=== PATIENT | female | born 1990 | race Caucasian/White ===

== ENCOUNTER 2017-03-02 19:40 | Emergency (ER) | payer MEDICAID ==
[2017-03-02 19:51] VITALS: BP 139/88
--- NOTE | 2017-03-02 20:27 | EDM.PDOC ---
ED HPI GENERAL MEDICAL PROBLEM - General Chief Complaint: Neck Problem Stated Complaint: BAD NECK PAINS Time Seen by Provider: 03/02/17 19:54 Source of Information: Reports: Patient, RN Notes Reviewed - History of Present Illness INITIAL COMMENTS - FREE TEXT/NARRATIVE: 26-year-old female comes in with neck discomfort. She's been having it off and on for about 2 months but states the last 1-2 weeks if pain is been more steady , more bothersome. She is not aware of any particular injury anus primarily posterior aspect of her neck with occasional radiation "to her arms". She also does have intermittent low back discomfort. She denies pain swelling or stiffness of hands and wrists or knees. She is wondering if she can have something for "pain". 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: Psychiatric History: Reports: Addiction, Anxiety, Depression, Psychosis Other Psychiatric History: pt states that she was diagnosed with something while shewasinjoail, but she does not know what she was diagnosed with - Infectious Disease History Infectious Disease History: Reports: Chicken Pox, Herpes Social & Family History - Family History Family Medical History: Unobtainable - Tobacco Use Smoking Status *Q: Current Every Day Smoker Years of Tobacco use: 12 Packs/Tins Daily: 0.3 Used Tobacco, but Quit: No - Caffeine Use Caffeine Use: Reports: Coffee, Energy Drinks, Soda - Alcohol Use Days Per Week of Alcohol Use: 2 Number of Drinks Per Day: 4 Total Drinks Per Week: 8 - Recreational Drug Use Recreational Drug Use: No Drug Use in Last 12 Months: Yes Recreational Drug Type: Reports: Methamphetamine Recreational Drug Use Frequency: Not Used In Over 5 Months ED ROS GENERAL - Review of Systems Review Of Systems: See Below Constitutional: Denies: Fever, Chills HEENT: Denies: Sinus Problem, Throat Pain Respiratory: Denies: Shortness of Breath Cardiovascular: Denies: Chest Pain GI/Abdominal: Denies: Abdominal Pain, Nausea, Vomiting Musculoskeletal: Reports: Neck Pain Skin: Reports: No Symptoms Neurological: Reports: No Symptoms ED EXAM, UPPER BACK/NECK PAIN - Physical Exam Exam: See Below General Appearance: Alert, No Apparent Distress Eye Exam: Bilateral Eye: PERRL Throat/Mouth Exam: Normal Inspection, Normal Oropharynx Head Exam: Atraumatic. No: Facial Swelling Neck Exam: Tenderness (Mild posterior soft tissue tenderness, no swelling warmth or erythema, good range of motion with minimal if any discomfort) Cardiovascular/Respiratory: Regular Rate, Rhythm Extremities: Normal Inspection, Normal Range of Motion Neurologic: No Motor/Sensory Deficits Skin Exam: Normal Color, Warm/Dry Course - Vital Signs Last Recorded V/S: Last Vital Signs Temp 96.9 F 03/02/17 19:48 Pulse 82 03/02/17 19:48 Resp 16 03/02/17 19:48 BP 139/88 03/02/17 19:48 Pulse Ox 99 03/02/17 19:48 Departure - Departure Time of Disposition: 20:25 Disposition: Home, Self-Care 01 Condition: Fair Clinical Impression: Cervical strain Qualifiers: Encounter type: initial encounter Qualified Code(s): S16.1XXA - Strain of muscle, fascia and tendon at neck level, initial encounter - Discharge Information Prescriptions: Naproxen [Naprosyn] 500 mg PO Q12HR #14 tablet Referrals: Danish Patten MD [Primary Care Provider] - Forms: ED Department Discharge Additional Instructions: Alternate ice and heat to the back area of your neck, that alone will give you meaningful relief of your discomfort, Naprosyn 500 mg twice daily, you may take Tylenol in addition in between doses 2-3 times daily for extra pain relief if needed, see Dr. Love in about one week for follow-up, call tomorrow morning for appointment.
== END 2017-03-02 20:35 | disposition home or self-care (01) ==
LOC: JD.ED 19:40
DX: S16.1XXA Strain of muscle, fascia and tendon at neck level, initial encounter (principal); F17.210 Nicotine dependence, cigarettes, uncomplicated; X58.XXXA Exposure to other specified factors, initial encounter
CPT/HCPCS: 99283

== ENCOUNTER 2017-05-09 15:42 | Emergency (ER) | payer MEDICAID ==
[2017-05-09 16:00] VITALS: BP 143/93
[2017-05-09] MEDS ORDERED: valACYclovir 1,000 MG Tab PO ONE (17:08)
--- NOTE | 2017-05-09 17:17 | EDM.PDOC ---
ED HPI GENERAL MEDICAL PROBLEM - General Chief Complaint: Genitourinary Problem Stated Complaint: HERPES OUTBREAK Time Seen by Provider: 05/09/17 16:41 Source of Information: Reports: Patient History Limitations: Reports: No Limitations - History of Present Illness INITIAL COMMENTS - FREE TEXT/NARRATIVE: Patient is a 26-year-old female who presents ED complaining of herpes outbreak to her genitals. States this started 3 days ago and has progressively gotten worse. Consistent with previous episodes. Has been on valacyclovir in the past. She is currently sexually active and states she's been using protection. Denies being . 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: Psychiatric History: Reports: Addiction, Anxiety, Depression, Psychosis Other Psychiatric History: pt states that she was diagnosed with something while shewasinjoail, but she does not know what she was diagnosed with - Infectious Disease History Infectious Disease History: Reports: Chicken Pox, Herpes Social & Family History - Family History Family Medical History: Unobtainable - Tobacco Use Smoking Status *Q: Current Every Day Smoker Years of Tobacco use: 10 Packs/Tins Daily: 0.4 Used Tobacco, but Quit: No - Caffeine Use Caffeine Use: Reports: Coffee, Energy Drinks, Soda - Alcohol Use Days Per Week of Alcohol Use: 2 Number of Drinks Per Day: 4 Total Drinks Per Week: 8 - Recreational Drug Use Recreational Drug Use: No Drug Use in Last 12 Months: Yes Recreational Drug Type: Reports: Marijuana/Hashish Recreational Drug Use Frequency: Not Used In Over 5 Months ED ROS GENERAL - Review of Systems Review Of Systems: See Below Constitutional: Reports: No Symptoms GI/Abdominal: Reports: No Symptoms : Reports: Pain. Denies: Dysuria ED EXAM, RENAL/ - Physical Exam Exam: See Below Exam Limited By: No Limitations General Appearance: Alert, WD/WN, No Apparent Distress Ears: Hearing Grossly Normal Nose: Normal Inspection Throat/Mouth: Normal Voice, No Airway Compromise Neck: Normal Inspection, Supple Respiratory/Chest: No Respiratory Distress, No Accessory Muscle Use Cardiovascular: Normal Peripheral Pulses, Regular Rate, Rhythm (Female) Exam: Vaginal Lesions (Consistent for herpes to the labial on the left side.) Neurological: Alert, Oriented, CN II-XII Intact, Normal Cognition, No Motor/ Sensory Deficits Psychiatric: Normal Affect, Normal Mood Skin Exam: Warm, Dry, Normal Color Course - Vital Signs Last Recorded V/S: Last Vital Signs Temp 97.3 F 05/09/17 15:59 Pulse 94 05/09/17 15:59 Resp 20 05/09/17 15:59 BP 143/93 H 05/09/17 15:59 Pulse Ox 99 05/09/17 15:59 - Orders/Labs/Meds Meds: Medications Discontinued Medications Generic Name Dose Route Start Last Admin Trade Name Freq PRN Reason Stop Dose Admin Lidocaine HCl 10 ml 05/09/17 17:31 05/09/17 17:43 Xylocaine 2% Jelly MUCMEM 05/09/17 17:32 10 ml ONETIME ONE Administration Valacyclovir HCl 1,000 mg 05/10/17 17:08 Valtrex PO 05/10/17 17:09 ONETIME ONE Valacyclovir HCl 1,000 mg 05/09/17 17:30 05/09/17 17:25 Valtrex PO Not Given DAILY ELIANA Valacyclovir HCl 1,000 mg 05/09/17 17:08 05/09/17 17:31 Valtrex PO 05/09/17 17:09 Not Given ONETIME ONE Valacyclovir HCl Confirm 05/09/17 17:30 05/09/17 17:31 Valtrex Administered 05/09/17 17:31 Not Given Dose 1,000 mg .ROUTE .STK-MED ONE Valacyclovir HCl 1,000 mg 05/09/17 17:30 05/09/17 17:42 Valtrex PO 05/09/17 17:31 1,000 mg ONETIME ONE Administration - Re-Assessments/Exams Free Text/Narrative Re-Assessment/Exam: Ordered valacyclovir thousand milligrams by mouth for genital herpes. Discharge instructions as documented. Departure - Departure Time of Disposition: 17:10 Disposition: Home, Self-Care 01 Condition: Good Clinical Impression: Genital herpes Qualifiers: Herpes simplex infection site: vulvovaginitis Qualified Code(s): A60.04 - Herpesviral vulvovaginitis - Discharge Information Prescriptions: valACYclovir [Valtrex] 500 mg PO ASDIRECTED #60 tablet Instructions: Sexually Transmitted Disease, [id number] Referrals: Danish Patten MD [Primary Care Provider] - Forms: ED Department Discharge Additional Instructions: As discussed take valacyclovir as prescribed. Refrain from any sexual intercourse until lesions have completely healed. After they have healed suggest utilizing condoms when having sexual intercourse so that you decrease the spreading of the herpes to your partner. Virus can still be transmitted even with no lesions present. The only sure way of not spreading the virus is to refrain from sexual intercourse. Follow-up with your primary care provider as needed. Return to the as needed to the ED for any new or worsening symptoms.
[2017-05-09] MEDS ORDERED: valACYclovir 1,000 MG Tab PO SCH (17:30)
[2017-05-09] MEDS ORDERED: valACYclovir 500 MG Tab PO ONE (17:30)
[2017-05-09] MEDS ORDERED: valACYclovir 500 MG Tab ONE (17:30)
[2017-05-09] MEDS ORDERED: Lidocaine 2% Jelly 10 ML Urojet MUCMEM ONE (17:31)
[2017-05-10] MEDS ORDERED: valACYclovir 1,000 MG Tab PO ONE (17:08)
== END 2017-05-09 17:45 | disposition home or self-care (01) ==
LOC: JD.ED 15:42
DX: A60.04 Herpesviral vulvovaginitis (principal); F17.210 Nicotine dependence, cigarettes, uncomplicated; Z79.899 Other long term (current) drug therapy
CPT/HCPCS: 99283; A9270

== ENCOUNTER 2017-06-14 07:46 | Emergency (ER) | payer MEDICAID ==
[2017-06-14 07:55] VITALS: BP 147/109
--- NOTE | 2017-06-14 08:14 | EDM.PDOC ---
ED HPI GENERAL MEDICAL PROBLEM - General Chief Complaint: Chest Pain Stated Complaint: CHEST PAIN,SORE IN MOUTH AND HALLUCINATIONS Time Seen by Provider: 06/14/17 08:03 Source of Information: Reports: Patient History Limitations: Reports: No Limitations - History of Present Illness INITIAL COMMENTS - FREE TEXT/NARRATIVE: This is a 26-year-old female. She had onset of sharp-type chest pain yesterday that has come and gone and it seemed to start when she was lying in bed. She says she got scared yesterday but she doesn't have a history of panic attacks. She says she has hallucinations about aliens every single day. For example should go outside and see an airplane and then she'll think is the end of the world and that the ship has left and she needs to be on it. Then she'll get this visualization of this metal alien is looking over the earth. She also states that her boyfriend that she hooked up with about a year and a half ago seems to be halting her and she will see shadows of him going past her. When she started talking about this boyfriend she began to cry. She states she doesn' t want to be stuck on him and he showed her undergone but she is not really afraid of him and may be he is trying to talk to her even though he is not in town any longer. She says all she has is visual hallucination she doesn't have any auditory hallucinations. She does have a history of drug use and methamphetamine use but she denies any use in the last while. This morning the sharp chest pain continued and she got scared and she comes to the ER for evaluation. She has had a recent cold she's had some mild nausea and vomiting but no diarrhea and she denies any other acute symptoms. She is not certain whether or not she should be . She has seen Dr. Nicole in the past for these hallucinations but has not seen her in quite some time. During this interview I specifically asked her if she wanted to hurt herself or kill herself and she says no she just wants to be rid of these hallucinations scare her. 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: Psychiatric History: Reports: Addiction, Anxiety, Depression, Hallucinations, Psychosis Other Psychiatric History: pt states that she was diagnosed with something while shewasinjoail, but she does not know what she was diagnosed with - Infectious Disease History Infectious Disease History: Reports: Chicken Pox, Herpes Social & Family History - Family History Family Medical History: Unobtainable - Tobacco Use Smoking Status *Q: Current Every Day Smoker Years of Tobacco use: 10 Packs/Tins Daily: 0.4 Used Tobacco, but Quit: No - Caffeine Use Caffeine Use: Reports: Coffee, Energy Drinks, Soda - Alcohol Use Days Per Week of Alcohol Use: 2 Number of Drinks Per Day: 4 Total Drinks Per Week: 8 - Recreational Drug Use Recreational Drug Use: No Drug Use in Last 12 Months: Yes Recreational Drug Type: Reports: Marijuana/Hashish Recreational Drug Use Frequency: Not Used In Over 5 Months ED ROS GENERAL - Review of Systems Review Of Systems: See Below Constitutional: Denies: Fever, Chills HEENT: Reports: Rhinitis. Denies: Throat Pain, Throat Swelling Respiratory: Denies: Shortness of Breath, Cough Cardiovascular: Reports: Chest Pain GI/Abdominal: Reports: Nausea, Vomiting. Denies: Abdominal Pain, Diarrhea : Reports: No Symptoms Musculoskeletal: Reports: No Symptoms Skin: Reports: No Symptoms Neurological: Reports: Confusion. Denies: Trouble Speaking, Difficulty Walking Psychiatric: Reports: Hallucinations, Other (Visual hallucinations but no auditory hallucinations). Denies: Suicidal Ideation Hematologic/Lymphatic: Reports: No Symptoms Immunologic: Reports: No Symptoms ED EXAM, GENERAL - Physical Exam Exam: See Below Exam Limited By: No Limitations General Appearance: Alert, WD/WN, Anxious, Mild Distress Eye Exam: Bilateral Eye: Normal Inspection (Pupils are midsize and reactive) Ears: Normal External Exam, Normal Canal, Normal TMs Nose: Normal Inspection, Normal Mucosa. No: Nasal Drainage Throat/Mouth: Normal Inspection, Normal Lips, Normal Oropharynx, Normal Voice, No Airway Compromise, Other (She does have a Sore noted on the lower left inner lip) Neck: Supple Respiratory/Chest: No Respiratory Distress, Lungs Clear, Normal Breath Sounds, Chest Non-Tender Cardiovascular: Regular Rate, Rhythm, No Murmur GI/Abdominal: Soft, Non-Tender Back Exam: Full Range of Motion Extremities: Normal Inspection, Normal Range of Motion Neurological: Alert, Oriented Psychiatric: Anxious, Tearful Skin Exam: Warm, Diaphoretic EKG INTERPRETATION EKG Date: 06/14/17 Time: 07:58 EKG Interpretation Comments: EKG shows a sinus tachycardia but there are no acute ST or T-wave changes noted there is no ischemia noted. Course - Vital Signs Last Recorded V/S: Last Vital Signs Temp 97.8 F 06/14/17 07:50 Pulse 103 H 06/14/17 08:00 Resp 18 06/14/17 07:50 BP 147/109 H 06/14/17 07:55 Pulse Ox 98 06/14/17 08:00 - Orders/Labs/Meds Orders: Active Orders 24 hr Category Date Time Status EKG 12 Lead [EKG Documentation Completion] [RC] STAT Care 06/14/17 08:50 Active CXR [Chest 1V Frontal] [CR] Stat Exams 06/14/17 08:03 Taken Labs: Laboratory Tests 06/14/17 06/14/17 06/14/17 Range/Units 08:20 08:20 08:20 WBC 8.25 (3.98-10.04) K/mm3 RBC 4.96 (3.98-5.22) M/mm3 Hgb 14.1 (11.2-15.7) gm/L Hct 42.5 (34.1-44.9) % MCV 85.7 (79.4-94.8) fl MCH 28.4 (25.6-32.2) pg MCHC 33.2 (32.2-35.5) g/dl RDW Std Deviation 45.9 (36.4-46.3) fL Plt Count 272 (182-369) K/mm3 MPV 11.1 (9.4-12.3) fl Neut % (Auto) 65.2 (34.0-71.1) % Lymph % (Auto) 23.3 (19.3-51.7) % [place] % (Auto) 10.3 (4.7-12.5) % Eos % (Auto) 1.0 (0.7-5.8) Baso % (Auto) 0.1 (0.1-1.2) % Neut # (Auto) 5.38 (1.56-6.13) K/mm3 Lymph # (Auto) 1.92 (1.18-3.74) K/mm3 [place] # (Auto) 0.85 H (0.24-0.36) K/mm3 Eos # (Auto) 0.08 (0.04-0.36) K/mm3 Baso # (Auto) 0.01 (0.01-0.08) K/mm3 Sodium 139 (136-145) mEq/L Potassium 3.4 L (3.5-5.1) mEq/L Chloride 101 (98-107) mEq/L Carbon Dioxide 24 (21-32) mEq/L Anion Gap 17.4 H (5-15) BUN 10 (7-18) mg/dL Creatinine 0.9 (0.55-1.02) mg/dL Est Cr Clr Drug Dosing 90.23 mL/min Estimated GFR (MDRD) > 60 (>60) mL/min BUN/Creatinine Ratio 11.1 L (14-18) Glucose 106 (74-106) mg/dL Calcium 9.6 (8.5-10.1) mg/dL Total Bilirubin 0.4 (0.2-1.0) mg/dL AST 17 (15-37) U/L ALT 19 (14-59) U/L Alkaline Phosphatase 95 (46-116) U/L Troponin I < 0.017 (0.00-0.056) ng/mL Total Protein 8.8 H (6.4-8.2) g/dl Albumin 4.3 (3.4-5.0) g/dl Globulin 4.5 gm/dL Albumin/Globulin Ratio 1.0 (1-2) HCG, Qual Negative (NEGATIVE) Urine Color (Yellow) Urine Appearance (Clear) Urine pH (5.0-8.0) Ur Specific [place]ers (1.005-1.030) Urine Protein (Negative) Urine Glucose (UA) (Negative) Urine Ketones (Negative) Urine Occult Blood (Negative) Urine Nitrite (Negative) Urine Bilirubin (Negative) Urine Urobilinogen (0.2-1.0) Ur Leukocyte Esterase (Negative) Urine RBC (0-5) /hpf Urine WBC (0-5) /hpf Ur Epithelial Cells (0-5) /hpf Urine Bacteria (FEW) /hpf Urine Mucus (FEW) /hpf Urine Opiates Screen (NEGATIVE) Ur Buprenorphine Scrn (NEGATIVE) Ur Oxycodone Screen (NEGATIVE) Urine Methadone Screen (NEGATIVE) Ur Propoxyphene Screen (NEGATIVE) Ur Barbiturates Screen (NEGATIVE) Ur Tricyclics Screen (NEGATIVE) Ur Phencyclidine Scrn (NEGATIVE) Ur Amphetamine Screen (NEGATIVE) U Methamphetamines Scrn (NEGATIVE) U Benzodiazepines Scrn (NEGATIVE) U Cocaine Metab Screen (NEGATIVE) U Marijuana (THC) Screen (NEGATIVE) 06/14/17 06/14/17 Range/Units 08:25 08:25 WBC (3.98-10.04) K/mm3 RBC (3.98-5.22) M/mm3 Hgb (11.2-15.7) gm/L Hct (34.1-44.9) % MCV (79.4-94.8) fl MCH (25.6-32.2) pg MCHC (32.2-35.5) g/dl RDW Std Deviation (36.4-46.3) fL Plt Count (182-369) K/mm3 MPV (9.4-12.3) fl Neut % (Auto) (34.0-71.1) % Lymph % (Auto) (19.3-51.7) % [place] % (Auto) (4.7-12.5) % Eos % (Auto) (0.7-5.8) Baso % (Auto) (0.1-1.2) % Neut # (Auto) (1.56-6.13) K/mm3 Lymph # (Auto) (1.18-3.74) K/mm3 [place] # (Auto) (0.24-0.36) K/mm3 Eos # (Auto) (0.04-0.36) K/mm3 Baso # (Auto) (0.01-0.08) K/mm3 Sodium (136-145) mEq/L Potassium (3.5-5.1) mEq/L Chloride (98-107) mEq/L Carbon Dioxide (21-32) mEq/L Anion Gap (5-15) BUN (7-18) mg/dL Creatinine (0.55-1.02) mg/dL Est Cr Clr Drug Dosing mL/min Estimated GFR (MDRD) (>60) mL/min BUN/Creatinine Ratio (14-18) Glucose (74-106) mg/dL Calcium (8.5-10.1) mg/dL Total Bilirubin (0.2-1.0) mg/dL AST (15-37) U/L ALT (14-59) U/L Alkaline Phosphatase (46-116) U/L Troponin I (0.00-0.056) ng/mL Total Protein (6.4-8.2) g/dl Albumin (3.4-5.0) g/dl Globulin gm/dL Albumin/Globulin Ratio (1-2) HCG, Qual (NEGATIVE) Urine Color Yellow (Yellow) Urine Appearance Slt cloudy H (Clear) Urine pH 6.0 (5.0-8.0) Ur Specific [place] > or = 1.030 (1.005-1.030) Urine Protein 1+ H (Negative) Urine Glucose (UA) Negative (Negative) Urine Ketones 2+ H (Negative) Urine Occult Blood Trace-lysed H (Negative) Urine Nitrite Negative (Negative) Urine Bilirubin 1+ H (Negative) Urine Urobilinogen 0.2 (0.2-1.0) Ur Leukocyte Esterase Negative (Negative) Urine RBC 5-10 H (0-5) /hpf Urine WBC 0-5 (0-5) /hpf Ur Epithelial Cells 0-5 (0-5) /hpf Urine Bacteria Few (FEW) /hpf Urine Mucus Not seen (FEW) /hpf Urine Opiates Screen Negative (NEGATIVE) Ur Buprenorphine Scrn Negative (NEGATIVE) Ur Oxycodone Screen Negative (NEGATIVE) Urine Methadone Screen Negative (NEGATIVE) Ur Propoxyphene Screen Negative (NEGATIVE) Ur Barbiturates Screen Negative (NEGATIVE) Ur Tricyclics Screen Negative (NEGATIVE) Ur Phencyclidine Scrn Negative (NEGATIVE) Ur Amphetamine Screen Presumptive positive H (NEGATIVE) U Methamphetamines Scrn Presumptive positive H (NEGATIVE) U Benzodiazepines Scrn Negative (NEGATIVE) U Cocaine Metab Screen Negative (NEGATIVE) U Marijuana (THC) Screen Negative (NEGATIVE) - Radiology Interpretation Free Text/Narrative:: Chest x-ray does not show any acute changes. - Re-Assessments/Exams Free Text/Narrative Re-Assessment/Exam: 06/14/17 11:07 The patient has been doing fine since she got here. I did speak to Dr. Boland regarding her and since she is having visual hallucinations and not auditory hallucinations telling her to do anything and she is not suicidal or homicidal he feel she is safe to go home with some medications and that she needs to stop the methamphetamines. He has suggested encouragement for her to follow up with Dr. Nicole or himself for further evaluation. I did speak to her regarding this and I encouraged her to stop the methamphetamine since that obviously makes the hallucinations worse I will provide a prescription for some Haldol 1 mg at nighttime as per Dr. Boland to help with these symptoms. Departure - Departure Time of Disposition: 11:09 Disposition: Home, Self-Care 01 Condition: Fair Clinical Impression: Visual hallucinations, Methamphetamine use, Atypical chest pain Anxiety disorder Qualifiers: Anxiety disorder type: generalized anxiety disorder Qualified Code(s): F41.1 - Generalized anxiety disorder Prescriptions: Haloperidol [Haldol] 1 mg PO BEDTIME #7 tab Referrals: Danish Patten MD [Primary Care Provider] - Cliff Boland MD [Physician] - Anita Nicole MD [Ordering Only Provider] - Forms: ED Department Discharge Additional Instructions: Doppler methamphetamines since this will help your hallucinations stop, take the Haldol 1 mg before you go to bed this will also help with your hallucinations, follow-up with Dr. Nicole or Dr. Boland this coming week for recheck so the can help you with your symptoms, if there is marked worsening of your symptoms or you are afraid for your life and return to the ER immediately - My Orders Last 24 Hours: My Active Orders 06/14/17 08:03 CXR [Chest 1V Frontal] [CR] Stat 06/14/17 08:50 EKG 12 Lead [EKG Documentation Completion] [RC] STAT - Assessment/Plan Last 24 Hours: My Active Orders 06/14/17 08:03 CXR [Chest 1V Frontal] [CR] Stat 06/14/17 08:50 EKG 12 Lead [EKG Documentation Completion] [RC] STAT
--- NOTE | 2017-06-14 16:54 | CR ---
Chest: Portable view of the chest was obtained. Comparison: No prior study. Heart size and mediastinum are normal. Lungs are clear. Bony structures are grossly intact. Impression: 1. Nothing acute is identified on portable chest x-ray. Diagnostic code #1
== END 2017-06-14 11:28 | disposition home or self-care (01) ==
LOC: JD.ED 07:46
DX: R07.89 Other chest pain (principal); F15.90 Other stimulant use, unspecified, uncomplicated; F41.1 Generalized anxiety disorder; R44.1 Visual hallucinations; F32.9 Major depressive disorder, single episode, unspecified; F17.210 Nicotine dependence, cigarettes, uncomplicated
CPT/HCPCS: 36415; 71045; 71045-26; 80053; 80306; 81001; 84484; 84703; 85025; 93005; 93010; 99285; 99285-25

== ENCOUNTER 2017-08-08 16:40 | Emergency (ER) | payer MEDICAID ==
[2017-08-08 16:49] VITALS: BP 137/80
--- NOTE | 2017-08-08 17:27 | EDM.PDOC ---
ED HPI GENERAL MEDICAL PROBLEM - General Chief Complaint: Chest Pain Stated Complaint: CHEST PAINS FOR 4 DAYS/BACK PAIN Time Seen by Provider: 08/08/17 17:21 Source of Information: Reports: Patient History Limitations: Reports: No Limitations - History of Present Illness INITIAL COMMENTS - FREE TEXT/NARRATIVE: 27-year-old female presents to the ED for assessment of bilateral sharp stabbing chest pains for the last 4 days. No associated fever chills or cough. She is a smoker but states her cough is no worse than normal. Denies any hemoptysis. No recent long travel history. No history of previous DVT. No recent use of oral control. His other complaint was injury to her toes when she jumped out of the back of a half-time and landed on the tips of her toes or jammed them up. States painful across all of the PIP joints in both feet. She admits to methamphetamine use intermittently which did cause significant back pain on one occasion. She doesn't believe she is ever had a heart attack from meth use. Note vital signs are all perfectly normal. O2 sats are 100% on room air. EP is 137/80. Onset: Sudden, Other (Injuries to her toes occurred 2 days ago as well from when she jumped off the back of a half-time truck) Onset Date: 08/04/17 (Has been having intermittent sharp stabbing chest pains primarily anterior chest for the last 4 days.) Duration: Day(s): (4 days) Location: Reports: Chest, Other (Diffuse anterior chest pain pain to all of her toes on both feet.) Quality: Reports: Sharp, Stabbing Severity: Moderate Improves with: Reports: None Worsens with: Reports: Breathing (Deep breaths can make the pain worse at times I mild pleuritic component to the pain.) Context: Denies: Activity, Exercise, Lifting, Sick Contact, Trauma, Other Associated Symptoms: Reports: Chest Pain (Mild smoker's cough at times), Cough, Shortness of Breath (When the chest pains come.), Weakness. Denies: No Other Symptoms, Confusion, cough w sputum, Diaphoresis, Fever/Chills ( to present illness), Headaches, Loss of Appetite, Malaise, Nausea/Vomiting, Rash, Seizure, Syncope Treatments WARE CLEANER: Reports: NSAIDS Upper Chest Pain Score (Numeric/FACES): 6 - Related Data Allergies Allergy/AdvReac Type Severity Reaction Status Date / Time No Known Allergies Allergy Verified 08/08/17 16:49 Home Meds: Home Meds Diclofenac Sodium [Voltaren] 25 mg PO TID #24 tablet 08/08/17 [Rx] predniSONE [Deltasone] 20 mg PO BID #11 tablet 08/08/17 [Rx] Past Medical History - Past Health History Medical/Surgical History: Denies 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: Psychiatric History: Reports: Addiction, Anxiety, Depression, Hallucinations, Psychosis Other Psychiatric History: pt states that she was diagnosed with something while shewasinjoail, but she does not know what she was diagnosed with - Infectious Disease History Infectious Disease History: Reports: Chicken Pox, Herpes Social & Family History - Family History Family Medical History: Unobtainable - Tobacco Use Smoking Status *Q: Current Every Day Smoker Years of Tobacco use: 10 Packs/Tins Daily: 0.5 Used Tobacco, but Quit: No Second Hand Smoke Exposure: No - Caffeine Use Caffeine Use: Reports: Coffee - Alcohol Use Days Per Week of Alcohol Use: 2 Number of Drinks Per Day: 4 Total Drinks Per Week: 8 - Recreational Drug Use Recreational Drug Use: No Drug Use in Last 12 Months: Yes Recreational Drug Type: Reports: Methamphetamine Recreational Drug Use Frequency: Not Used In Over 5 Months - Living Situation & Occupation Living situation: Reports: Single Occupation: Unemployed ED ROS GENERAL - Review of Systems Review Of Systems: See Below Constitutional: Denies: Fever, Chills, Malaise, Weakness, Fatigue, Decreased Appetite, Weight Loss HEENT: Reports: No Symptoms Respiratory: Reports: Shortness of Breath, Pleuritic Chest Pain, Cough, Sputum ( Mild smoker's cough). Denies: Wheezing, Hemoptysis ( occasional sputum production) Cardiovascular: Reports: Chest Pain. Denies: Blood Pressure Problem, Claudication (Sharp stabbing chest pains off and on for the last 4 days.), Dyspnea on Exertion, Edema, Lightheadedness, Orthopnea, Palpitations Endocrine: Reports: No Symptoms GI/Abdominal: Reports: No Symptoms : Reports: No Symptoms Musculoskeletal: Reports: Back Pain (Occasional spasm in her right upper back.) Skin: Reports: No Symptoms Neurological: Reports: No Symptoms Psychiatric: Reports: No Symptoms Hematologic/Lymphatic: Reports: No Symptoms Immunologic: Reports: No Symptoms ED EXAM, GENERAL - Physical Exam Exam: See Below Exam Limited By: No Limitations General Appearance: Alert, WD/WN, Anxious Eye Exam: Bilateral Eye: Normal Inspection Head: Atraumatic, Normocephalic Neck: Normal Inspection, Supple, Non-Tender, Full Range of Motion. No: Lymphadenopathy (L), Lymphadenopathy (R), Thyromegaly Respiratory/Chest: No Respiratory Distress, Lungs Clear, Normal Breath Sounds, No Accessory Muscle Use, Chest Non-Tender Cardiovascular: Normal Peripheral Pulses, Regular Rate, Rhythm, No Edema, No Gallop, No Murmur Peripheral Pulses: 2+: Posterior Tibial (L), Posterior Tibial (R), Dorsalis Pedis (L), Dorsalis Pedis (R) GI/Abdominal: Normal Bowel Sounds, Soft, Non-Tender, No Organomegaly, No Distention, No Abnormal Bruit, No Mass, Pelvis Stable Extremities: Other (She has pain on palpation of all her toes but there is no obvious deformities of any of the toes. There is perhaps mild ecchymoses at the PIP joints of the first second and third toes bilaterally. Palpation of her calves reveals no evidence of DVT and there is no lower extremity edema) Neurological: Alert ( PIP joints of the first second and third toes both feet.) , Oriented, CN II-XII Intact, Normal Cognition, Normal Gait Psychiatric: Normal Affect, Normal Mood Skin Exam: Warm, Dry, Intact, Normal Color, No Rash EKG INTERPRETATION EKG Date: 08/08/17 Time: 17:50 Rhythm: NSR Rate (Beats/Min): 65 [place]: Normal P-Wave: Present QRS: Normal ST-T: Normal QT: Prolonged (Mildly prolonged.) EKG Interpretation Comments: Borderline ECG Course - Vital Signs Last Recorded V/S: Last Vital Signs Temp 35.9 C 08/08/17 16:45 Pulse 84 08/08/17 16:45 Resp 18 08/08/17 16:45 BP 137/80 08/08/17 16:45 Pulse Ox 100 08/08/17 16:45 - Orders/Labs/Meds Orders: Active Orders 24 hr Category Date Time Status EKG Documentation Completion [RC] STAT Care 08/08/17 17:29 Active Chest 2V [CR] Stat Exams 08/08/17 17:27 Taken Foot Comp Min 3V Lt [CR] Routine Exams 08/08/17 Taken Foot Comp Min 3V Rt [CR] Stat Exams 08/08/17 17:28 Taken - Radiology Interpretation Free Text/Narrative:: 27-year-old female attends the ED with diffuse anterior chest pain which is primarily sharp and stabbing with perhaps a mild pleuritic component. She states she has a smoker's cough no worse than normal. No associated fever chills. No history of recent travel. - Re-Assessments/Exams Free Text/Narrative Re-Assessment/Exam: 08/08/17 18:48 evaluation emergency room today in regards to diffuse reported sharp stabbing chest pains for the last 4 days. No associated fever chills cough etc. She is a smoker. Examination reveals no significant chest wall tenderness to palpation. Lungs were clear to stage percussion without any wheezing or rhonchi. Heart sounds are normal with no murmurs. Good carotid pulses. Benign abdominal exam. The other concern was injury to her toes as she jumped off the back of a half-time landed on the tips of her toes jamming them up. 2 nights ago. On inspection I do not see any evidence of fractures they are all well aligned with some bruising of the PIP joints of the first second and third toes bilaterally. Plan ECG two-view chest x-ray x-ray of both feet to look at her toes. 08/08/17 18:49 chest x-ray is completely normal. Cardiac silhouette is normal. There is increased stool in the left hemicolon pushing the left hemidiaphragm which may or may not be contributing to chest pains. ECG is sinus rhythm at 65/ m without any signs of ischemia. X-rays of both feet reveal the toes to be all normal without any fractures. Appears to have a viral upper respiratory tract infection or chest wall pain that is viral in origin. Treated with Voltaren 50 mg 3 times daily for the next 8 days to reduce pain and inflammation. Prednisone 20 mg twice a day for 5 days breakfast and supper Departure - Departure Time of Disposition: 18:50 Disposition: Home, Self-Care 01 Condition: Fair Clinical Impression: Non-cardiac chest pain, Pleurisy Contusion of foot including toes Qualifiers: Encounter type: initial encounter Laterality: unspecified laterality Qualified Code(s): S90.30XA - Contusion of unspecified foot, initial encounter; S90.129A - Contusion of unspecified lesser toe(s) without damage to nail, initial encounter; S90.129A - Contusion of unspecified lesser toe(s) without damage to nail, initial encounter - Discharge Information Prescriptions: Diclofenac Sodium [Voltaren] 25 mg PO TID #24 tablet predniSONE [Deltasone] 20 mg PO BID #11 tablet Referrals: Danish Patten MD [Primary Care Provider] - Forms: ED Department Discharge Additional Instructions: Evaluation in the emergency room today in regards to reports of shift recurrent sharp stabbing anterior chest pains the last 3-4 days. No associated increasing cough. No fever or chills or coughing up blood. Examination reveals lungs to be completely clear to auscultation and percussion. There is a rib head out of place in your right upper back at thoracic 8 level. No significant chest wall pain could be elicited on examination. Heart sounds completely normal ECG or heart tracing was completely normal with no signs of heart related illness. Two- view chest x-ray is completely normal as well. There is increased stool in the left hemicolon pushing up on the left hemidiaphragm which may or may not be causing some left-sided chest pain. Pain relief once the bowel empties appropriately. In regards to injuries to both feet and her toes x-rays of both feet and all 10 toes proved to be completely normal with no fractures identified. Suggest treatment to be Voltaren 50 mg 3 times daily for the next 8 days to relieve pain and inflammation in the chest wall and Deltasone 20 mg with supper and breakfast for the next 5 days to also reduce pain and inflammation in the chest and toes. Follow-up with personal care provider of any further problem's occur. - My Orders Last 24 Hours: My Active Orders 08/08/17 Foot Comp Min 3V Lt [CR] Routine 08/08/17 17:27 Chest 2V [CR] Stat 08/08/17 17:28 Foot Comp Min 3V Rt [CR] Stat 08/08/17 17:29 EKG Documentation Completion [RC] STAT - Assessment/Plan Last 24 Hours: My Active Orders 08/08/17 Foot Comp Min 3V Lt [CR] Routine 08/08/17 17:27 Chest 2V [CR] Stat 08/08/17 17:28 Foot Comp Min 3V Rt [CR] Stat 08/08/17 17:29 EKG Documentation Completion [RC] STAT
--- NOTE | 2017-08-09 12:47 | CR ---
Left foot: This study was dictated as part of right foot exam.
--- NOTE | 2017-08-09 12:47 | CR ---
Chest: Two views of the chest were obtained. Comparison: Prior chest x-ray of 06/14/17. Heart size and mediastinum are within normal limits. Lungs are clear. Bony structures are within normal limits other than slight scoliosis. Impression: 1. Nothing acute is seen on two-view chest x-ray. Diagnostic code #2
--- NOTE | 2017-08-09 12:47 | CR ---
Bilateral feet: Three views of both feet were obtained. Joint spaces are preserved. No fracture, dislocation or other bony abnormality is identified. Impression: 1. No abnormality is seen on three-view bilateral foot exam. Diagnostic code #1
== END 2017-08-08 19:08 | disposition home or self-care (01) ==
LOC: JD.ED 16:40
DX: R07.89 Other chest pain (principal); R09.1 Pleurisy; S90.122A Contusion of left lesser toe(s) without damage to nail, initial encounter; S90.121A Contusion of right lesser toe(s) without damage to nail, initial encounter; S90.112A Contusion of left great toe without damage to nail, initial encounter; S90.111A Contusion of right great toe without damage to nail, initial encounter; F17.210 Nicotine dependence, cigarettes, uncomplicated; W22.8XXA Striking against or struck by other objects, initial encounter
CPT/HCPCS: 71046; 71046-26; 73630-26-LT; 73630-26-RT; 73630-LT; 73630-RT; 93005; 93010; 99284-25; 99285-25

== ENCOUNTER 2017-11-16 21:12 | Emergency (ER) | payer MEDICAID ==
[2017-11-16 21:22] VITALS: BP 139/90
[2017-11-16] MEDS ORDERED: Lidocaine 2% Jelly 10 ML Urojet ONE (22:07)
[2017-11-16] MEDS ORDERED: Lidocaine 2% Jelly 10 ML Urojet MUCMEM ONE (22:10)
[2017-11-16] MEDS ORDERED: Lidocaine 2% Jelly 5 ML Tube MUCMEM SCH (22:15)
--- NOTE | 2017-11-16 22:17 | EDM.PDOC ---
ED HPI GENERAL MEDICAL PROBLEM - General Chief Complaint: [employer]Y [employer] Problem Stated Complaint: poss vaginal herpes outbreak Time Seen by Provider: 11/16/17 21:23 Source of Information: Reports: Patient, Old Records History Limitations: Reports: No Limitations - History of Present Illness INITIAL COMMENTS - FREE TEXT/NARRATIVE: The patient states that she has a history of genital herpes, and developed an outbreak 3 days ago. She states that she has previously been prescribed Valtrex , and that she started taking that 3 days ago, but that it has not helped with her pain. She states that she gets an outbreak about once a month. The patient states that she was previously seen in this ED for a herpes outbreak , and was prescribed a vaginal "gel" that helped with her pain. Review of prior medical records finds that the patient was seen in this ED on 05/09/2017, and was given a cylinder of 2% viscous lidocaine, and prescribed Valtrex. The patient's PCP is Dr. Patten. Her Psychiatrist is Dr. Nicole. vaginal Pain Score (Numeric/FACES): 7 - Related Data Allergies Allergy/AdvReac Type Severity Reaction Status Date / Time No Known Allergies Allergy Verified 11/16/17 21:22 Home Meds: Home Meds risperiDONE [Risperdal] 1 mg PO BEDTIME 11/16/17 [History] valACYclovir HCl [Valtrex] 500 mg PO DAILY 11/16/17 [History] Past Medical History [employer]Y [employer] History: Reports: Psychiatric History: Reports: Addiction, Anxiety, Depression, Schizophrenia - Infectious Disease History Infectious Disease History: Reports: Chicken Pox, Herpes (genital) - Past Surgical History HEENT Surgical History: Reports: Oral Surgery ([place] teeth extraction) Female Surgical History: Reports: Section (x 1) Social & Family History - Family History Family Medical History: Unobtainable - Tobacco Use Smoking Status *Q: Current Every Day Smoker Years of Tobacco use: 11 Packs/Tins Daily: 0.3 Packs/Tins Daily Comment: Down from 05/19 ppd - Caffeine Use Caffeine Use: Reports: Coffee, Soda - Alcohol Use Alcohol Use History: No - Recreational Drug Use Recreational Drug Use: Yes Drug Use in Last 12 Months: Yes Recreational Drug Type: Reports: Marijuana/Hashish (Last smoked mid October 2017), Methamphetamine (last smoked, snorted, injected mid October 2017) - Living Situation & Occupation Living situation: Reports: Single Occupation: Unemployed ED ROS GENERAL - Review of Systems Review Of Systems: ROS reveals no pertinent complaints other than HPI. ED EXAM, GENERAL - Physical Exam Exam: See Below Exam Limited By: No Limitations General Appearance: Alert, WD/WN, No Apparent Distress Eye Exam: Bilateral Eye: Normal Inspection Ears: Normal External Exam, Hearing Grossly Normal Nose: Normal Inspection Throat/Mouth: Normal Inspection, Normal Lips, Normal Voice, No Airway Compromise Head: Atraumatic, Normocephalic Neck: Normal Inspection, Full Range of Motion (Female) Exam: Normal External Exam, Normal Speculum Exam, Other (The patient reports tenderness within the fold between her upper right labia minora and labia majora. There is a subtle crack in the skin at the site.) Rectal (Female) Exam: Deferred Neurological: Alert, Oriented, Normal Cognition Psychiatric: Normal Affect Skin Exam: Warm, Dry, Intact, Normal Color, No Rash Course - Vital Signs Last Recorded V/S: Last Vital Signs Temp 36.9 C 11/16/17 21:19 Pulse 109 H 11/16/17 21:19 Resp 18 11/16/17 21:19 BP 139/90 11/16/17 21:19 Pulse Ox 97 11/16/17 21:19 - Orders/Labs/Meds Meds: Medications Discontinued Medications Generic Name Dose Route Start Last Admin Trade Name Jose PRN Reason Stop Dose Admin Lidocaine HCl 5 ml 11/16/17 22:15 11/16/17 22:32 Xylocaine 2% Jelly MUCMEM Not Given Q4H ELIANA Lidocaine HCl Confirm 11/16/17 22:07 11/16/17 22:32 Xylocaine 2% Jelly Administered 11/16/17 22:08 Not Given Dose 10 ml .ROUTE .STK-MED ONE Lidocaine HCl 10 ml 11/16/17 22:10 11/16/17 22:10 Xylocaine 2% Jelly MUCMEM 11/16/17 22:11 10 ml ONETIME ONE Administration - Re-Assessments/Exams Free Text/Narrative Re-Assessment/Exam: 11/16/17 22:13 The patient presents, stating that she is having a genital herpes outbreak, already on Valtrex, requesting some topical soothing medicine. On physical exam , however, I find no herpetic lesions whatsoever, either at the introitus or intravaginally. The patient is, however, tender at the intertriginous fold of the right upper labia minora and labia majora, likely incurred during sexual activity. The patient, therefore, does not need to continue taking the Valtrex. Departure - Departure Time of Disposition: 22:14 Disposition: Home, Self-Care 01 Condition: Good Clinical Impression: Vulvar irritation - Discharge Information Instructions: Vulvar Pain Referrals: Danish Patten MD [Primary Care Provider] - Forms: ED Department Discharge Additional Instructions: You were seen in the emergency room for vulvar pain, thinking that it was a herpes outbreak. Physical examination, no herpetic lesions were found, however, you were tender at the fold between your upper right labia minora and majora. As this is not a herpes outbreak, you do not need to continue to take the Valtrex. Follow-up with your PCP, Dr. Patten, as needed. Follow-up at [facility] at your previously scheduled appointment next 11/23/2017. If any other problems, please do not hesitate to return to the ER.
== END 2017-11-16 22:30 | disposition home or self-care (01) ==
LOC: JD.ED 21:12
DX: N90.89 Other specified noninflammatory disorders of vulva and perineum (principal); F17.210 Nicotine dependence, cigarettes, uncomplicated
CPT/HCPCS: 99283

== ENCOUNTER 2020-05-13 14:57 | Emergency (ER) | payer MEDICAID ==
[2020-05-13 15:21] VITALS: BP 155/96; PULSE 127
[2020-05-13] MEDS ORDERED: Haloperidol Lactate 5 MG/ML SDV IM STA (15:52)
[2020-05-13] MEDS ORDERED: LORazepam 2 MG/ML SDV IVPUSH STA (15:52)
[2020-05-13] MEDS ORDERED: Benztropine 1 MG Tab PO STA (15:52)
[2020-05-13] MEDS ORDERED: Haloperidol Lactate 5 MG/ML SDV IVPUSH STA (15:58)
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
[2020-05-13] MEDS ORDERED: Sodium Chloride 0.9% 1,000 ML IV SCH (16:15)
== END 2020-05-14 06:42 | disposition home or self-care (01) ==
LOC: JD.ED 14:57
DX: F15.929 Other stimulant use, unspecified with intoxication, unspecified (principal); F17.210 Nicotine dependence, cigarettes, uncomplicated; R00.0 Tachycardia, unspecified; I10 Essential (primary) hypertension; R41.0 Disorientation, unspecified; F41.9 Anxiety disorder, unspecified; R44.1 Visual hallucinations; H57.04 Mydriasis; F22 Delusional disorders
CPT/HCPCS: 36415; 80053; 80306; 80307; 81025; 83735; 84443; 85007; 85027; 93005; 96374; 96375; 99284; A9270; J1630; J2060; J7030